=== PATIENT | male | born 1985 | race Caucasian/White ===

== ENCOUNTER 2018-11-17 05:21 | Emergency (ER) | payer BC, OTHER ==
[2018-11-17 05:49] LABS: APPEARANCE,URINE SLIGHTLY-CLOUDY; BILIRUBIN,URINE SMALL (NEGATIVE); GLUCOSE, URINE NEGATIVE (NEGATIVE); KETONES,URINE NEGATIVE (NEGATIVE); LEUKOCYTE ESTERASE,URINE MODERATE (NEGATIVE); NITRITE,URINE NEGATIVE (NEGATIVE); PROTEIN,URINE 100 mg/dL (NEGATIVE); URINE SPECIFIC GRAVITY 1.031
[2018-11-17 05:52] LABS: COLOR,URINE YELLOW
[2018-11-17] MEDS ORDERED: ONDANSETRON HCL INJ/PF 4 MG/2 ML SDV IV ONE (06:24)
[2018-11-17] MEDS ORDERED: KETOROLAC TROMETHAMINE INJ/PF 30 MG/1 ML SDV IV ONE (06:24)
[2018-11-17] MEDS ORDERED: NORMAL SALINE 1000 ML 1,000 ML IV ONE (06:25)
[2018-11-17 06:30] LABS: ABSOLUTE BASOPHILS # (AUTO) 0.1 10^3/uL (0.0-0.2); ABSOLUTE EOSINOPHILS # (AUTO) 0.1 10^3/uL (0.0-0.6); ABSOLUTE LYMPHOCYTES (AUTO) 2.8 10^3/uL (0.5-4.7); ABSOLUTE MONOCYTES (AUTO) 0.5 10^3/uL (0.1-1.4); ABSOLUTE NEUT (AUTO) 6.7 10^3/uL (1.7-8.2); BASOPHILS % (AUTO) 0.6 % (0-2); EOSINOPHILS % (AUTO) 0.8 % (0-6); HEMATOCRIT 43.6 % (37.9-51.0); HEMOGLOBIN 15.6 g/dL (13.5-17.0); LYMPHOCYTES % (AUTO) 27.1 % (13-45); MEAN CORPUSCULAR HEMOGLOBIN 32.1 pg (27.0-33.4); MEAN CORPUSCULAR HGB CONC 35.7 g/dL (32.0-36.0); MEAN CORPUSCULAR VOLUME 90 fl (80-97); MONOCYTES % (AUTO) 5.1 % (3-13); PLATELET COUNT 247 10^3/uL (150-450); RED BLOOD COUNT 4.86 10^6/uL (4.35-5.55); RED CELL DISTRIBUTION WIDTH 12.9 % (11.5-14.0); SEGMENTED NEUTROPHILS % (AUTO) 66.4 % (42-78); TOTAL CELLS COUNTED % (AUTO) 100 %; WHITE BLOOD COUNT 10.2 10^3/uL (4.0-10.5)
[2018-11-17 06:40] LABS: ALANINE AMINOTRANSFERASE 134 U/L (21-72); ALBUMIN 4.5 g/dL (3.5-5.0); ALKALINE PHOSPHATASE 87 U/L (38-126); ANION GAP 12 (5-19); ASPARTATE AMINO TRANSFERASE 57 U/L (17-59); BILIRUBIN,DIRECT 0.3 mg/dL (0.0-0.4); BILIRUBIN,TOTAL 0.6 mg/dL (0.2-1.3); BLOOD UREA NITROGEN 19 mg/dL (7-20); CALCIUM 9.5 mg/dL (8.4-10.2); CARBON DIOXIDE 23 mmol/L (22-30); CHLORIDE 106 mmol/L (98-107); GLUCOSE 132 mg/dL (75-110); LIPASE 107.9 U/L (23-300); POTASSIUM 4.1 mmol/L (3.6-5.0); SODIUM 140.5 mmol/L (137-145); TOTAL PROTEIN 7.4 g/dL (6.3-8.2)
--- NOTE | 2018-11-17 06:48 | ER Document Report ---
ED General - General Chief Complaint: Possible Kidney Stone Stated Complaint: KIDNEY PAIN Time Seen by Provider: 11/17/18 06:02 Primary Care Provider: LILLY BEDOLLA [Primary Care Provider] - Follow up as needed Notes: 33-year-old male with a history of kidney stones presents with sudden onset of left lower quadrant pain starting last night. Patient describes pain in his left flank rating to the left lower quadrant of his abdomen. Describes it as severe. He has seen some blood in his urine over the last several days. He denies any fever chills has had some nausea and one attempted vomiting. Denies diarrhea. Denies falls or trauma. Denies any chest pain denies shortness of breath. States this feels similar prior character to prior kidney stones he has had in the past. Denies any testicular pain. Denies any dysuria. TRAVEL OUTSIDE OF THE [place] IN LAST 30 DAYS: No - Related Data Allergies/Adverse Reactions: No Known Allergies Allergy (Verified 11/17/18 05:28) Past Medical History - Social History Smoking Status: Unknown if Ever Smoked Family History: None Patient has suicidal ideation: No Patient has homicidal ideation: No Renal/ Medical History: Denies: Hx Peritoneal Dialysis Review of Systems - Review of Systems Constitutional: denies: Chills, Fever EENT: denies: Throat pain Cardiovascular: denies: Chest pain, Dyspnea Respiratory: denies: Cough Genitourinary: Flank pain, Hematuria. denies: Dysuria Musculoskeletal: Back pain -: Yes All other systems reviewed and negative Physical Exam - Vital signs Vitals: Temp Pulse Resp BP Pulse Ox 97.9 F 94 22 H 150/101 H 99 11/17/18 05:25 11/17/18 05:25 11/17/18 05:25 11/17/18 05:25 11/17/18 05:25 - Notes Notes: GENERAL_APPEARANCE: well_nourished, alert, cooperative, appears very uncomfortable VITALS: reviewed, see vital signs table. HEAD: no_swelling\tenderness on the head. EYES: PERRL, EOMI, conjunctiva_clear. NOSE: no_nasal_discharge. MOUTH: (-)decreased moisture. THROAT: no_throat_inflammation, no_airway_obstruction. no_lymphadenopathy NECK: supple, no_neck_tenderness, (-)thyromegaly. BACK: No CVA tenderness CHEST_WALL: no_chest_tenderness. LUNGS: no_wheezing, no_rales, no_rhonchi, (-)accessory muscle use, good air exchange bilateral. HEART: normal_rate, normal_rhythm, normal_S1, normal_S2, (-)S3, (-)S4, no_murmur, no_rub. ABDOMEN: normal_BS, soft, left lower quadrant_abd_tenderness, (-)guarding, (- )rebound, no_organomegaly, no_abd_masses. EXTREMITIES: no_swelling\tenderness in the extremities, no_edema. SKIN: warm, dry, good_color, no_rash. MENTAL_STATUS: speech_clear, oriented_X_3, normal_affect, responds_appropriately to questions. Course - Re-evaluation Re-evalutation: 11/17/18 06:48 33-year-old male with a history of kidney stones resents to the emergency department with left flank and left lower quadrant abdominal pain. Patient given IV fluids pain and nausea medicine. We will get a CT of the abdomen pelvis to assess for the stone. Urine to assess for any kind of infection. 11/17/18 09:22 Patient has a 2 mm stone at the left UVJ. There was a lot of blood in the urine but only 5 white cells my suspicion for infection is low there is some squamous contamination also. Is pain-free after IV fluids pain and nausea medicine. He has had kidney stones before and I will discharge him home with Flomax pain and nausea medicine. Have him follow-up with urology. If worse or not improving or fever return to the ER. - Vital Signs Vital signs: Temp Pulse Resp BP Pulse Ox 97.9 F 94 22 H 150/101 H 99 11/17/18 05:25 11/17/18 05:25 11/17/18 05:25 11/17/18 05:25 11/17/18 05:25 - Laboratory Result Diagrams: 11/17/18 05:47 11/17/18 05:47 Laboratory results interpreted by me: 11/17/18 11/17/18 05:24 05:47 Creatinine 1.35 H Glucose 132 H ALT 134 H Urine Protein 100 H Urine Blood LARGE H Urine Bilirubin SMALL H Urine Urobilinogen 4.0 H Ur Leukocyte Esterase MODERATE H - Diagnostic Test Radiology reviewed: Reports reviewed Discharge - Discharge Clinical Impression: Kidney stone on left side Condition: Good Disposition: HOME, SELF-CARE Instructions: Kidney Stone ([facility]) Prescriptions: Ondansetron [Zofran Odt 4 mg Tablet] 1 - 2 tab PO Q4HP PRN #10 tab.rapdis PRN Reason: Ketorolac Tromethamine [Toradol 10 mg Tablet] 10 mg PO Q6HP PRN #10 tablet PRN Reason: Hydrocodone/Acetaminophen [Larned 5-325 mg Tablet] 1 tab PO QID PRN #12 tablet PRN Reason: Tamsulosin HCl [Flomax] 0.4 mg PO DAILY #7 cap.er.24h Referrals: [facility] [Primary Care Provider] - Follow up as needed
--- NOTE | 2018-11-17 07:06 | RADIOLOGY REPORT (SQ) ---
EXAM DESCRIPTION: CT ABDOMEN PELVIS WITHOUT IV CONTRAST COMPLETED DATE/TME: 11/17/2018 06:26 CLINICAL HISTORY: Respiratory Distress. 33 years Male, L flank pain Comparison: None. Technique: No contrast. Coronal and sagittal reformat. This exam was performed according to our departmental dose-optimization program, which includes automated exposure control, adjustment of the mA and/or kV according to patient size and/or use of iterative reconstruction technique.[facility]: Dose Right [facility]: CareDose [facility]: Dose Right [facility]: Teradose 4D [facility]: [employer] LIMITATIONS: None Findings: 0.2 cm left distal ureteral stone within 1 cm of the ureterovesicular junction with mild left hydronephrosis/hydroureter. No ascites. No pneumoperitoneum. No bowel obstruction. No gross evidence of gallbladder inflammation or hepatobiliary obstruction. Low attenuation diffuse large bowel wall thickening suggestive of prior infectious/inflammatory insult. Hepatic steatosis. Unenhanced lower thorax, abdominopelvic structures, and musculoskeleton appear otherwise grossly unremarkable. Impression: 0.2 cm left distal ureteral stone with low-grade obstruction.
[2018-11-17 09:44] VITALS: BP 102/77
== END 2018-11-17 09:44 | disposition home or self-care (01) ==
LOC: ER 05:21
DX: N20.0 Calculus of kidney (principal); N23 Unspecified renal colic; R31.9 Hematuria, unspecified
CPT/HCPCS: 99284; 96361; 96374; 96375; 36415; 83690; 85025; 80053; 81001; 74176; J1885; J2405; J7030